=== PATIENT | female | born 1990 | race Caucasian/White ===

== ENCOUNTER 2017-06-29 04:27 | Inpatient (IN) | payer BC ==
[2017-06-29] MEDS ORDERED: Sodium Chloride 0.9% 10 ML Syringe FLUSH PRN (08:03)
--- NOTE | 2017-06-29 08:14 | PCM.LDHP ---
L&D History of Present Illness - General Date of Service: 06/29/17 Admit Problem/Dx: Patient Status Order with Admit Dx/Problem 06/29/17 08:04 Patient Status [ADT] Routine Admission Diagnosis/Problem Admission Diagnosis/Problem Labor established Source of Information: Patient History Limitations: Reports: No Limitations - History of Present Illness Location, : Reports: Abdomen, Lower back Quality: Reports: Ache Severity: Mild Improves with: Reports: None Worsens with: Reports: None Associated Symptoms: Denies: vaginal bleeding, vaginal clots, vaginal discharge , vaginal fluid - Related Data Allergies/Adverse Reactions: Allergies Allergy/AdvReac Type Severity Reaction Status Date / Time No Known Allergies Allergy Verified 06/29/17 07:34 Home Medications: Home Meds PNV95/Ferrous Fumarate/FA [ Tablet] 1 tab PO DAILY 06/29/17 [History] Past Medical History - Past Health History Medical/Surgical History: Denies Medical/Surgical History 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: 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: 4 Endocrine/Metabolic History: Reports: Obesity/BMI 30+ - Past Surgical History HEENT Surgical History: Reports: Tonsillectomy GI Surgical History: Reports: Cholecystectomy, Hernia, Abdominal Social & Family History - Family History Family Medical History: Noncontributory - Tobacco Use Smoking Status *Q: Never Smoker - Recreational Drug Use Recreational Drug Use: No H&P Review of Systems - Review of Systems: Review Of Systems: See Below General: Reports: No Symptoms HEENT: Reports: No Symptoms Pulmonary: Reports: No Symptoms Cardiovascular: Reports: No Symptoms Gastrointestinal: Reports: Abdominal Pain Genitourinary: Reports: No Symptoms Musculoskeletal: Reports: No Symptoms Skin: Reports: No Symptoms Psychiatric: Reports: No Symptoms Neurological: Reports: No Symptoms Hematologic/Lymphatic: Reports: No Symptoms Immunologic: Reports: No Symptoms L&D Exam - Exam Exam: See Below - Vital Signs Vital Signs: Last Vital Signs Temp 36.8 C 06/29/17 07:15 Pulse 87 06/29/17 07:15 Resp 14 06/29/17 07:15 BP 125/81 06/29/17 07:15 Pulse Ox 96 06/29/17 07:15 Weight: 99.337 kg - OB Specific Contraction Frequency (min): q5-8min Contraction Intensity: Mild to Moderate Movement: Active Heart Tones: Present Heart Tones per Min: 130 Heart Rate (FHR) Variability: Moderate (6-25 bmp) Presentation: Vertex Estimated Weight: 3500 grams - Hernandez Score Hernandez Score Cervix Position: Midposition Hernandez Score Consistency: Soft Hernandez Score Effacement: >80% Hernandez Score Dilation: > 5 cm Hernandez Score Infant's Station: -2 Hernandez Score Total: 10 - Exam General: Alert, Oriented Cardiovascular: Regular Rate, Regular Rhythm GI/Abdominal Exam: Normal Bowel Sounds, Soft, Non-Tender Genitourinary: Normal external exam Skin: Warm, Dry, Intact Psychiatric: Alert, Normal Affect, Normal Mood - Problem List (1) Normal labor SNOMED Code(s): 57219929 ICD Code: O80 - ENCOUNTER FOR FULL-TERM UNCOMPLICATED DELIVERY; Z37.9 - OUTCOME OF DELIVERY, UNSPECIFIED Status: Acute Current Visit: No Problem List Initiated/Reviewed/Updated: Yes Orders Last 24hrs: Active Orders 24 hr Category Date Time Status Patient Status [ADT] Routine ADT 06/29/17 08:04 Ordered Activity as Tolerated [RC] PFP Care 06/29/17 08:04 Ordered Communication Order [RC] ASDIRECTED Care 06/29/17 08:04 Ordered Heart Tones [RC] ASDIRECTED Care 06/29/17 08:04 Ordered Notify Provider [RC] PFP Care 06/29/17 08:04 Ordered Notify Provider [RC] PRN Care 06/29/17 08:04 Ordered Peripheral IV Care [RC] . DIRECTED Care 06/29/17 08:04 Ordered Vital Signs [RC] PER UNIT ROUTINE Care 06/29/17 08:04 Ordered Nothing Per Oral Diet [DIET] Diet 06/29/17 Breakfast Ordered CBC W/O DIFF,HEMOGRAM [HEME] Stat Lab 06/29/17 08:03 Ordered Lactated Ringers [Ringers, Lactated] 1,000 ml Med 06/29/17 08:15 Ordered IV ASDIRECTED Lidocaine 1% [Xylocaine 1%] Med 06/29/17 08:03 Once 50 ml INJECT ONETIME ONE Oxytocin/Lactated Ringers [Pitocin in LR 10 Units/1,000 Med 06/29/17 08:15 Ordered ML] 10 unit in 1,000 ml IV .CONTINUOUS Sodium Chloride 0.9% [Saline Flush] Med 06/29/17 08:03 Ordered 10 ml FLUSH ASDIRECTED PRN Electronic Heart Tones Ext w TOCO [WOMSER] Ot 06/29/17 08:04 Ordered Routine Electronic Heart Tones Internal [WOMSER] Per Unit Ot 06/29/17 08:04 Ordered Routine Peripheral IV Insertion Adult [OM.PC] Routine Ot 06/29/17 08:04 Ordered Resuscitation Status Routine Resus Stat 06/29/17 08:03 Ordered Assessment/Plan Comment:: 27 yo at 39 weeks 2 days gestation with contractions at home. Plan: Pt at term in labor. 6 cm dilated on exam. AROM performed with clear fluid. GBS negative anticipate vaginal delivery. Pt desires no epidural at this time.
[2017-06-29] MEDS ORDERED: Oxytocin/Lactated Ringers 10 UNIT/1,000 ML BAG IV SCH (08:15)
[2017-06-29] MEDS ORDERED: Lactated Ringers 1,000 ML IV SCH (08:15)
[2017-06-29] MEDS ORDERED: Nalbuphine 20 MG/1 ML Amp ONE (09:09)
[2017-06-29] MEDS ORDERED: Nalbuphine 20 MG/1 ML Amp IVPUSH ONE (09:19)
[2017-06-29] MEDS ORDERED: Lidocaine 1% 50 ML MDV INJECT ONE (10:00)
[2017-06-29] MEDS ORDERED: Lanolin 100% Cream 7 GM Tube TOP PRN (10:31)
[2017-06-29] MEDS ORDERED: Docusate Sodium 100 MG Cap PO PRN (10:31)
[2017-06-29] MEDS ORDERED: Benzocaine/Menthol 20%-0.5% Spray 56 GM Canister TOP PRN (10:31)
[2017-06-29] MEDS ORDERED: Witch Hazel Medicated Pads 100/Jar TOP PRN (10:31)
[2017-06-29] MEDS ORDERED: Acetaminophen 325 MG Tab PO PRN (10:31)
--- NOTE | 2017-06-29 10:38 | PCM.DEL ---
L & D Note - General Info Date of Service: 06/29/17 - Delivery Note Labor: Spontaneous Delivery Outcome: Livebirth Delivery Method: Spontaneous Vaginal Delivery-Single Presentation: Left Occiput Anterior (PILLO) Nuchal Cord: None Prep: Povidone-Iodine (Betadine Anesthesia Type: None Amniotic Fluid Description: Clear Laceration: 2nd Degree Suture type: Vicryl Suture size: 3-0 Placenta: Intact, Spontaneous Cord: 3 Vessels Estimated Blood Loss: 200 Resuscitation Needed: No Score 1 min: 9 Score 5 min: 9 Delivery Comments (Free Text/Narrative):: AGA female Time of 0954 Time of placenta 1010 9 and 9 - Patient Data Vitals - Most Recent: Last Vital Signs Temp 36.8 C 06/29/17 07:15 Pulse 87 06/29/17 07:15 Resp 14 06/29/17 07:15 BP 125/81 06/29/17 07:15 Pulse Ox 96 06/29/17 07:15 Weight - Most Recent: 99.337 kg Lab Results Last 24 Hours: Laboratory Results - last 24 hr 06/29/17 Range/Units 08:20 WBC 9.91 (3.98-10.04) K/mm3 RBC 3.80 L (3.98-5.22) M/mm3 Hgb 11.5 (11.2-15.7) gm/L Hct 35.7 (34.1-44.9) % MCV 93.9 (79.4-94.8) fl MCH 30.3 (25.6-32.2) pg MCHC 32.2 (32.2-35.5) g/dl RDW Std Deviation 47.8 H (36.4-46.3) fL Plt Count 178 L (182-369) K/mm3 MPV 12.8 H (9.4-12.3) fl Med Orders - Current: Current Medications Acetaminophen (Tylenol) 650 mg PO Q4H PRN PRN Reason: mild pain or fever Benzocaine/Menthol (Dermoplast Pain Relief [place]) 0 gm TOP ASDIRECTED PRN PRN Reason: Perineal Comfort Measure Docusate Sodium (Colace) 100 mg PO BID PRN PRN Reason: Constipation Emollient Ointment (Lansinoh Hpa) 0 gm TOP ASDIRECTED PRN PRN Reason: Sore Nipples Lactated Ringer's (Ringers, Lactated) 1,000 mls @ 100 mls/hr IV ASDIRECTED YASMINE Last Admin: 06/29/17 09:58 Dose: 100 mls/hr Oxytocin/Lactated Ringer's (Pitocin In Lr 10 Units/1,000 Ml) 10 unit in 1,000 mls @ 500 mls/hr IV .CONTINUOUS YASMINE Ibuprofen (Motrin) 600 mg PO Q4H PRN PRN Reason: Mild pain or fever Sodium Chloride (Saline Flush) 10 ml FLUSH ASDIRECTED PRN PRN Reason: Keep Vein Open Witgina Macielel (Tucks) 1 pad TOP ASDIRECTED PRN PRN Reason: Hemorrhoid pain Discontinued Medications Lidocaine HCl (Xylocaine 1%) 50 ml INJECT ONETIME ONE Stop: 06/29/17 10:01 Last Admin: 06/29/17 10:15 Dose: 50 ml Nalbuphine HCl (Nubain) Confirm Administered Dose 20 mg .ROUTE .STK-MED ONE Stop: 06/29/17 09:10 Last Admin: 06/29/17 09:25 Dose: Not Given Nalbuphine HCl (Nubain) 10 mg IVPUSH ONETIME ONE Stop: 06/29/17 09:20 Last Admin: 06/29/17 09:10 Dose: 5 mg - Problem List & Annotations (1) Normal labor SNOMED Code(s): 60096387 Code(s): O80 - ENCOUNTER FOR FULL-TERM UNCOMPLICATED DELIVERY; Z37.9 - OUTCOME OF DELIVERY, UNSPECIFIED Status: Acute Current Visit: No - Problem List Review Problem List Initiated/Reviewed/Updated: Yes - My Orders Last 24 Hours: My Active Orders 06/29/17 08:03 Sodium Chloride 0.9% [Saline Flush] 10 ml FLUSH ASDIRECTED PRN Resuscitation Status Routine 06/29/17 08:04 Patient Status [ADT] Routine Activity as Tolerated [RC] PFP Communication Order [RC] ASDIRECTED Heart Tones [RC] ASDIRECTED Notify Provider [RC] PFP Notify Provider [RC] PRN Peripheral IV Care [RC] . DIRECTED Vital Signs [RC] PER UNIT ROUTINE Electronic Heart Tones Ext w TOCO [WOMSER] Routine Electronic Heart Tones Internal [WOMSER] Per Unit Routine Peripheral IV Insertion Adult [OM.PC] Routine 06/29/17 08:15 Lactated Ringers [Ringers, Lactated] 1,000 ml IV ASDIRECTED Oxytocin/Lactated Ringers [Pitocin in LR 10 Units/1,000 ML] 10 unit in 1,000 ml IV .CONTINUOUS 06/29/17 10:29 Patient Status Manage Transfer [TRANSFER] Routine 06/29/17 10:31 Patient Status [ADT] Routine Activity as Tolerated [RC] PER UNIT ROUTINE Vital Signs [RC] ASDIRECTED Acetaminophen [Tylenol] 650 mg PO Q4H PRN Benzocaine/Menthol [Dermoplast Pain Relief [place]] See Dose Instructions TOP ASDIRECTED PRN Docusate Sodium [Colace] 100 mg PO BID PRN Ibuprofen [Motrin] 600 mg PO Q4H PRN Lanolin [Lansinoh HPA] See Dose Instructions TOP ASDIRECTED PRN Witch Becky [Tucks] 1 pad TOP ASDIRECTED PRN Assess Lochia [WOMSER] Per Unit Routine Assess Uterine Involution [WOMSER] Per Unit Routine Breast Pump [WOMSER] Per Unit Routine Medication Administration Instruction [OM.PC] Routine Perineal Care [OM.PC] Per Unit Routine Sitz Bath [OM.PC] Per Unit Routine 06/29/17 10:45 Heat Therapy [OM.PC] PRN 06/29/17 Breakfast Nothing Per Oral Diet [DIET] 06/29/17 Lunch Regular Diet [DIET] 06/30/17 05:00 CBC W/O DIFF,HEMOGRAM [HEME] Routine 06/30/17 10:45 Heat Therapy [OM.PC] PRN - Plan Plan:: 27 yo at 39 weeks 2 days gestation with contractions at home. Plan: Pt at term in labor. 6 cm dilated on exam. AROM performed with clear fluid. GBS negative anticipate vaginal delivery. Pt desires no epidural at this time.
[2017-06-29] MEDS: Ibuprofen 600 MG Tab PO PRN ×2 (11:41→20:55)
[2017-06-30] MEDS: Ibuprofen 600 MG Tab PO PRN (06:56)
--- NOTE | 2017-06-30 07:26 | PCM.DCSUM1 ---
Discharge Summary - Hospital Course Free Text/Narrative:: 27 you at day 1 s/p normal vaginal delivery pain controlled lochia normal bottle feeding Assessment PPD #1 without complication anemia secondary to blood loss Plan DC to home today, follow up in 6-8 weeks for visit continue with iron daily - Discharge Data Discharge Date: 06/30/17 Discharge Disposition: Home, Self-Care 01 Condition: Good - Discharge Diagnosis/Problem(s) (1) Normal labor SNOMED Code(s): 40195262 ICD Code: O80 - ENCOUNTER FOR FULL-TERM UNCOMPLICATED DELIVERY; Z37.9 - OUTCOME OF DELIVERY, UNSPECIFIED Status: Acute Current Visit: No - Patient Instructions Diet: Usual Diet as Tolerated Driving: May Drive Today Showering/Bathing: May Shower Notify Provider of: Fever, Increased Pain, Swelling and Redness, Drainage, Nausea and/or Vomiting Other/Special Instructions: Pelvic rest-no sexual intercourse for 6 weeks - Discharge Plan Home Medications: Home Meds PNV95/Ferrous Fumarate/FA [ Tablet] 1 tab PO DAILY 06/29/17 [History] Referrals: Betty Lees MD [Primary Care Provider] - (6-8 weeks ) - Discharge Summary/Plan Comment DC Time >30 min.: No - General Info Date of Service: 06/30/17 Functional Status: Reports: Pain Controlled, Tolerating Diet, Ambulating - Patient Data Vitals - Most Recent: Last Vital Signs Temp 36.7 C 06/30/17 03:23 Pulse 69 06/30/17 03:23 Resp 16 06/30/17 03:23 BP 109/62 06/30/17 03:23 Pulse Ox 97 06/30/17 03:23 Weight - Most Recent: 99.337 kg I&O - Last 24 hours: Intake & Output 06/29/17 06/30/17 06/30/17 22:59 06:59 14:59 Intake Total 0 Balance 0 Lab Results - Last 24 hrs: Laboratory Results - last 24 hr 06/29/17 06/30/17 Range/Units 08:20 06:28 WBC 9.91 10.52 H (3.98-10.04) K/mm3 RBC 3.80 L 3.39 L (3.98-5.22) M/mm3 Hgb 11.5 10.2 L (11.2-15.7) gm/L Hct 35.7 32.3 L (34.1-44.9) % MCV 93.9 95.3 H (79.4-94.8) fl MCH 30.3 30.1 (25.6-32.2) pg MCHC 32.2 31.6 L (32.2-35.5) g/dl RDW Std Deviation 47.8 H 48.1 H (36.4-46.3) fL Plt Count 178 L 169 L (182-369) K/mm3 MPV 12.8 H 12.7 H (9.4-12.3) fl Med Orders - Current: Current Medications Acetaminophen (Tylenol) 650 mg PO Q4H PRN PRN Reason: mild pain or fever Last Admin: 06/29/17 23:26 Dose: 650 mg Benzocaine/Menthol (Dermoplast Pain Relief [place]) 0 gm TOP ASDIRECTED PRN PRN Reason: Perineal Comfort Measure Last Admin: 06/29/17 11:41 Dose: 56 gm Docusate Sodium (Colace) 100 mg PO BID PRN PRN Reason: Constipation Emollient Ointment (Lansinoh Hpa) 0 gm TOP ASDIRECTED PRN PRN Reason: Sore Nipples Ibuprofen (Motrin) 600 mg PO Q4H PRN PRN Reason: Mild pain or fever Last Admin: 06/30/17 06:56 Dose: 600 mg Witch Becky (Tucks) 1 pad TOP ASDIRECTED PRN PRN Reason: Hemorrhoid pain Last Admin: 06/29/17 11:41 Dose: 1 can Discontinued Medications Lactated Ringer's (Ringers, Lactated) 1,000 mls @ 100 mls/hr IV ASDIRECTED YASMINE Last Admin: 06/29/17 09:58 Dose: 100 mls/hr Oxytocin/Lactated Ringer's (Pitocin In Lr 10 Units/1,000 Ml) 10 unit in 1,000 mls @ 500 mls/hr IV .CONTINUOUS YASMINE Lidocaine HCl (Xylocaine 1%) 50 ml INJECT ONETIME ONE Stop: 06/29/17 10:01 Last Admin: 06/29/17 10:15 Dose: 50 ml Nalbuphine HCl (Nubain) Confirm Administered Dose 20 mg .ROUTE .STK-MED ONE Stop: 06/29/17 09:10 Last Admin: 06/29/17 09:25 Dose: Not Given Nalbuphine HCl (Nubain) 10 mg IVPUSH ONETIME ONE Stop: 06/29/17 09:20 Last Admin: 06/29/17 09:10 Dose: 5 mg Sodium Chloride (Saline Flush) 10 ml FLUSH ASDIRECTED PRN PRN Reason: Keep Vein Open *Q Meaningful Use (DIS) - VTE *Q VTE Criteria *Q: - Stroke *Q Stroke Criteria *Q: - AMI *Q AMI Criteria *Q: - General Info Date of Service: 06/30/17 - Patient Data Vital Signs - Most Recent: Last Vital Signs Temp 36.7 C 06/30/17 03:23 Pulse 69 06/30/17 03:23 Resp 16 06/30/17 03:23 BP 109/62 06/30/17 03:23 Pulse Ox 97 06/30/17 03:23 Weight - Most Recent: 99.337 kg I&O - Last 24 Hours: Intake & Output 06/29/17 06/30/17 06/30/17 22:59 06:59 14:59 Intake Total 0 Balance 0 Lab Results - Last 24 Hours: Laboratory Results - last 24 hr 06/29/17 06/30/17 Range/Units 08:20 06:28 WBC 9.91 10.52 H (3.98-10.04) K/mm3 RBC 3.80 L 3.39 L (3.98-5.22) M/mm3 Hgb 11.5 10.2 L (11.2-15.7) gm/L Hct 35.7 32.3 L (34.1-44.9) % MCV 93.9 95.3 H (79.4-94.8) fl MCH 30.3 30.1 (25.6-32.2) pg MCHC 32.2 31.6 L (32.2-35.5) g/dl RDW Std Deviation 47.8 H 48.1 H (36.4-46.3) fL Plt Count 178 L 169 L (182-369) K/mm3 MPV 12.8 H 12.7 H (9.4-12.3) fl Med Orders - Current: Current Medications Acetaminophen (Tylenol) 650 mg PO Q4H PRN PRN Reason: mild pain or fever Last Admin: 06/29/17 23:26 Dose: 650 mg Benzocaine/Menthol (Dermoplast Pain Relief [place]) 0 gm TOP ASDIRECTED PRN PRN Reason: Perineal Comfort Measure Last Admin: 06/29/17 11:41 Dose: 56 gm Docusate Sodium (Colace) 100 mg PO BID PRN PRN Reason: Constipation Emollient Ointment (Lansinoh Hpa) 0 gm TOP ASDIRECTED PRN PRN Reason: Sore Nipples Ibuprofen (Motrin) 600 mg PO Q4H PRN PRN Reason: Mild pain or fever Last Admin: 06/30/17 06:56 Dose: 600 mg Witch Becky (Tucks) 1 pad TOP ASDIRECTED PRN PRN Reason: Hemorrhoid pain Last Admin: 06/29/17 11:41 Dose: 1 can Discontinued Medications Lactated Ringer's (Ringers, Lactated) 1,000 mls @ 100 mls/hr IV ASDIRECTED YASMINE Last Admin: 06/29/17 09:58 Dose: 100 mls/hr Oxytocin/Lactated Ringer's (Pitocin In Lr 10 Units/1,000 Ml) 10 unit in 1,000 mls @ 500 mls/hr IV .CONTINUOUS [facility] Lidocaine HCl (Xylocaine 1%) 50 ml INJECT ONETIME ONE Stop: 06/29/17 10:01 Last Admin: 06/29/17 10:15 Dose: 50 ml Nalbuphine HCl (Nubain) Confirm Administered Dose 20 mg .ROUTE .STK-MED ONE Stop: 06/29/17 09:10 Last Admin: 06/29/17 09:25 Dose: Not Given Nalbuphine HCl (Nubain) 10 mg IVPUSH ONETIME ONE Stop: 06/29/17 09:20 Last Admin: 06/29/17 09:10 Dose: 5 mg Sodium Chloride (Saline Flush) 10 ml FLUSH ASDIRECTED PRN PRN Reason: Keep Vein Open - Infant Interaction Infant Disposition, : in Room with Family Interaction: Holding Infant Feeding: Attempted ; Nursed Fair/Poor, Bottle Fed Support Person: - Recovery Exam Fundal Tone: Firm Fundal Level: At Umbilicus Fundal Placement: Midline Lochia Amount: Small Lochia Color: Rubra/Red Perineum Description: Other (see below) Other Perinuem Description: 2nd degree Episiotomy/Laceration: Approximated Bladder Status: Voiding Urinary Elimination: Voided - Exam General: Alert, Oriented HEENT: Pupils Equal GI/Abdominal Exam: Normal Bowel Sounds, Soft Skin: Warm, Dry, Intact
[2017-06-30 12:22] VITALS: BP 124/73
== END 2017-06-30 13:25 | disposition home or self-care (01) | DRG 560 ==
LOC: JD.OBCHECK 04:27 → JD.OB 04:29 → JD.OBCHECK 08:03 → JD.OB 08:04 → OBSVTOIN 09:54 → JD.OB 09:54
PROVIDERS: ADMIT Family Medicine; ATTEND Family Medicine
PROC: 10E0XZZ Delivery of Products of Conception, External Approach (ICD-10-PCS; principal; 2017-06-29)
PROC: 10907ZC Drainage of Amniotic Fluid, Therapeutic from Products of Conception, Via Natural or Artificial Opening (ICD-10-PCS; 2017-06-29)
PROC: 0KQM0ZZ Repair Perineum Muscle, Open Approach (ICD-10-PCS; 2017-06-29)
DX: O70.1 Second degree perineal laceration during delivery (principal); Z3A.39 39 weeks gestation of pregnancy; Z37.0 Single live birth
CPT/HCPCS: 36415; 59409; 85027; A9270-GY; J2300; J7120

== ENCOUNTER 2020-12-16 23:13 | Emergency (ER) | payer BC ==
--- NOTE | 2020-12-16 23:26 | EDM.PDOC ---
ED HPI GENERAL MEDICAL PROBLEM - General Chief Complaint: Lower Extremity Injury/Pain Stated Complaint: ANKLE INJURY Time Seen by Provider: 12/16/20 23:21 Source of Information: Reports: Patient History Limitations: Reports: No Limitations - History of Present Illness INITIAL COMMENTS - FREE TEXT/NARRATIVE: The patient presents with right ankle pain. She rolled her ankle on a roll of carpet. She denies any other injury. She has pain and swelling to her right lateral ankle. Onset: Sudden Duration: Minutes: Location: Reports: Lower Extremity, Right (lateral ankle) Quality: Reports: Sharp Severity: Moderate Improves with: Reports: None Worsens with: Reports: None Context: Reports: Other (walking) Associated Symptoms: Reports: No Other Symptoms Right Ankle Pain Score (Numeric/FACES): 6 - Related Data Allergies Allergy/AdvReac Type Severity Reaction Status Date / Time No Known Allergies Allergy Verified 12/16/20 23:19 Home Meds: Home Meds Pnv No.95/Ferrous Fum/Folic AC [ Tablet] 1 tab PO DAILY 06/29/17 [History] Docusate Sodium [Colace] 100 mg PO BID PRN cap 09/27/18 [Rx] Ibuprofen [Motrin] 600 mg PO Q6H PRN tablet 09/27/18 [Rx] Past Medical History - Past Health History Medical/Surgical History: Denies Medical/Surgical History 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: Endocrine/Metabolic History: Reports: Obesity/BMI 30+ - Past Surgical History HEENT Surgical History: Reports: Tonsillectomy GI Surgical History: Reports: Cholecystectomy, Hernia, Abdominal Social & Family History - Family History Family Medical History: No Pertinent Family History - Caffeine Use Caffeine Use: Reports: Soda Review of Systems - Review of Systems Review Of Systems: See Below Constitutional: Reports: No Symptoms Eyes: Reports: No Symptoms Ears: Reports: No Symptoms Nose: Reports: No Symptoms Mouth/Throat: Reports: No Symptoms Respiratory: Reports: No Symptoms Cardiovascular: Reports: No Symptoms GI/Abdominal: Reports: No Symptoms Musculoskeletal: Reports: Other (right ankle pain and swelling) ED EXAM, GENERAL - Physical Exam Exam: See Below Exam Limited By: No Limitations General Appearance: Alert, No Apparent Distress Ears: Normal External Exam Nose: Normal Inspection Head: Atraumatic, Normocephalic Neck: Normal Inspection Respiratory/Chest: No Respiratory Distress Extremities: Other (Pain upon palpation with edema to the right lateral ankle with good sensation and pulses.) Course - Vital Signs Last Recorded V/S: Last Vital Signs Temp 97.5 F 12/16/20 23:19 Pulse 98 12/16/20 23:19 Resp 17 12/16/20 23:19 BP Pulse Ox 99 12/16/20 23:19 - Orders/Labs/Meds Orders: Active Orders 24 hr Category Date Time Status Ankle Min 3V Rt [CR] Stat Exams 12/16/20 23:22 Ordered Durable Medical Equipment for Discharge [DME for Oth 12/16/20 23:44 Ordered Discharge] [COMM] Stat Durable Medical Equipment for Discharge [DME for Oth 12/16/20 23:45 Ordered Discharge] [COMM] Stat - Re-Assessments/Exams Free Text/Narrative Re-Assessment/Exam: 12/16/20 23:25 I have ordered an x-ray of her ankle. 12/16/20 23:45 Her x-ray shows nothing acute. I will get her a stirrup splint and crutches. Departure - Departure Time of Disposition: 23:50 Disposition: Home, Self-Care 01 Condition: Good Clinical Impression: Right ankle sprain Qualifiers: Encounter type: initial encounter Involved ligament of ankle: unspecified ligament Qualified Code(s): S93.401A - Sprain of unspecified ligament of right ankle, initial encounter - Discharge Information Referrals: Betty Lees MD [Primary Care Provider] - 1 Week Forms: ED Department Discharge Additional Instructions: Wear the splint for a couple weeks. Use the crutches as needed for a few days. Gently put pressure on your ankle as tolerated over the next couple of days. Ice your ankle for 15 minutes 3 to 5 times per day for 2 days. Try to elevate your ankle above your heart for the next couple of days to reduce swelling. Take tylenol or motrin for pain. Follow up with your doctor if you are not better within a week. Sepsis Event Note (ED) - Evaluation Sepsis Screening Result: No Definite Risk - Focused Exam Vital Signs: Vital Signs Temp Pulse Resp Pulse Ox 12/16/20 23:19 97.5 F 98 17 99 - My Orders Last 24 Hours: My Active Orders 12/16/20 23:22 Ankle Min 3V Rt [CR] Stat 12/16/20 23:44 Durable Medical Equipment for Discharge [DME for Discharge] [COMM] Stat 12/16/20 23:45 Durable Medical Equipment for Discharge [DME for Discharge] [COMM] Stat - Assessment/Plan Last 24 Hours: My Active Orders 12/16/20 23:22 Ankle Min 3V Rt [CR] Stat 12/16/20 23:44 Durable Medical Equipment for Discharge [DME for Discharge] [COMM] Stat 12/16/20 23:45 Durable Medical Equipment for Discharge [DME for Discharge] [COMM] Stat
[2020-12-16 23:48] VITALS: PULSE 98
--- NOTE | 2020-12-17 07:27 | CR ---
Right ankle: 4 views of the right ankle were obtained. Comparison: No previous ankle study. Soft tissue swelling is identified. Ankle mortise is symmetric. No acute fracture, dislocation or other bony abnormality is appreciated. Impression: 1. Soft tissue swelling. 2. No discrete acute osseous finding is appreciated. Diagnostic code #2
== END 2020-12-17 00:05 | disposition home or self-care (01) ==
LOC: JD.ED 23:13
DX: S93.401A Sprain of unspecified ligament of right ankle, initial encounter (principal); E66.9 Obesity, unspecified; Z68.38 Body mass index [BMI] 38.0-38.9, adult; X50.1XXA Overexertion from prolonged static or awkward postures, initial encounter
CPT/HCPCS: 73610-26-RT; 73610-RT; 99282; 99283

== ENCOUNTER 2023-04-07 23:06 | Emergency (ER) | payer BC ==
[2023-04-08 02:01] VITALS: BP 137/90; PULSE 78
== END 2023-04-08 02:00 | disposition home or self-care (01) ==
LOC: JD.ED 23:06
DX: S93.401A Sprain of unspecified ligament of right ankle, initial encounter (principal); E66.9 Obesity, unspecified; Z68.41 Body mass index [BMI] 40.0-44.9, adult; X50.1XXA Overexertion from prolonged static or awkward postures, initial encounter
CPT/HCPCS: 73610-26-RT; 73610-RT; 99283

== ENCOUNTER 2024-01-25 00:55 | Emergency (ER) | payer BC ==
[2024-01-25] MEDS: Aspirin 81 MG Tab.Chew PO ONE (01:27)
[2024-01-25 01:49] LABS: BASOPHILS PERCENT AUTO 0.4 % (0.0-1.0); EOSINOPHILS ABSOLUTE AUTO 0.1 K/mm3 (0.0-0.4); EOSINOPHILS PERCENT AUTO 1.2 % (0.0-6.0); HEMATOCRIT 34.8 % (37.0-47.0); HEMOGLOBIN 11.5 gm/dl (12.0-16.0); IMMATURE GRAN ABSOLUTE AUTO 0.03 K/mm3 (0.00-0.05); IMMATURE GRAN PERCENT AUTO 0.4 % (0.0-0.4); LYMPHOCYTES PERCENT AUTO 37.4 % (24.0-44.0); MEAN CORPUSCULAR VOLUME 87.9 fl (83.0-99.0); MEAN PLATELET VOLUME 10.5 fl (9.4-12.3); MONOCYTES ABSOLUTE AUTO 0.6 K/mm3 (0.0-0.8); NEUTROPHILS ABSOLUTE AUTO 4.2 K/mm3 (1.8-7.7); NEUTROPHILS PERCENT AUTO 52.6 % (41.0-71.0); PLATELET COUNT,PLT 290 K/mm3 (150-400); RED BLOOD CELL COUNT 3.96 M/mm3 (4.10-5.30); WHITE BLOOD CELL COUNT,WBC 8.03 K/mm3 (3.9-11.3)
[2024-01-25 02:38] LABS: A/G RATIO 1.2 (1-2); ALANINE AMINOTRANSFERASE,ALT 49 U/L (14-59); ALBUMIN 3.8 g/dl (3.4-5.0); ALKALINE PHOSPHATASE 73 U/L (46-116); ANION GAP 15.8 (5-15); ASPARTATE AMNIOTRANSFERASE,AST 27 U/L (15-37); BILIRUBIN TOTAL 0.2 mg/dL (0.2-1.0); BLOOD UREA NITROGEN,BUN 15 mg/dL (7-18); BUN/CREATININE RATIO 18.8 (14-18); CALCIUM 8.7 mg/dL (8.5-10.1); CHLORIDE,CL 103 mEq/L (98-107); CREATININE 0.8 mg/dL (0.55-1.02); ESTIMATED GFR 101 mL/min (>60); GLUCOSE RANDOM 106 mg/dL (70-99); LIPASE 42 U/L (16-77); POTASSIUM,K 3.8 mEq/L (3.5-5.1); PROTEIN TOTAL,TP 7.1 g/dl (6.4-8.2); SODIUM,NA 140 mEq/L (136-145)
[2024-01-25 02:43] LABS: TROPONIN I HIGH SENSITIVITY < 4 pg/mL (<=51)
[2024-01-25 02:47] LABS: CARBON DIOXIDE,CO2 24 mEq/L (21-32)
[2024-01-25 03:07] VITALS: BP 137/77; PULSE 84
== END 2024-01-25 03:07 | disposition home or self-care (01) ==
LOC: JD.ED 00:55
DX: R07.9 Chest pain, unspecified (principal); Z86.16 Personal history of COVID-19; Z90.49 Acquired absence of other specified parts of digestive tract
CPT/HCPCS: 36415; 71045; 80053; 83690; 84484; 85025; 93005; 99285; A9270; 93010; 99284

== ENCOUNTER 2024-04-19 05:14 | Emergency (ER) | payer BC ==
[2024-04-19] MEDS: Sodium Chloride 0.9% 1,000 ML IV ONE (05:59)
[2024-04-19] MEDS: Ondansetron 4 MG/2 ML SDV IVPUSH ONE (06:00)
[2024-04-19] MEDS: Sodium Chloride 0.9% 10 ML Syringe FLUSH PRN (06:00)
[2024-04-19] MEDS: Ketorolac 30 MG/ML SDV IVPUSH ONE (06:00)
[2024-04-19 06:04] LABS: BASOPHILS PERCENT AUTO 0.2 % (0.0-1.0); EOSINOPHILS PERCENT AUTO 0.2 % (0.0-6.0); HEMATOCRIT 34.3 % (37.0-47.0); HEMOGLOBIN 11.3 gm/dl (12.0-16.0); IMMATURE GRAN ABSOLUTE AUTO 0.02 K/mm3 (0.00-0.05); IMMATURE GRAN PERCENT AUTO 0.2 % (0.0-0.4); LYMPHOCYTES ABSOLUTE AUTO 1.4 K/mm3 (1.0-4.8); LYMPHOCYTES PERCENT AUTO 16.8 % (24.0-44.0); MEAN CORPUSCULAR HEMOGLOBIN 29.1 pg (28.0-32.0); MEAN CORPUSCULAR HGB CONC 32.9 g/dl (32.0-36.0); MEAN CORPUSCULAR VOLUME 88.4 fl (83.0-99.0); MEAN PLATELET VOLUME 10.7 fl (9.4-12.3); MONOCYTES ABSOLUTE AUTO 0.5 K/mm3 (0.0-0.8); MONOCYTES PERCENT AUTO 5.8 % (0.0-8.0); NEUTROPHILS ABSOLUTE AUTO 6.6 K/mm3 (1.8-7.7); NEUTROPHILS PERCENT AUTO 76.8 % (41.0-71.0); PLATELET COUNT,PLT 281 K/mm3 (150-400); RED BLOOD CELL COUNT 3.88 M/mm3 (4.10-5.30); WHITE BLOOD CELL COUNT,WBC 8.56 K/mm3 (3.9-11.3)
[2024-04-19 06:29] LABS: ALBUMIN 3.7 g/dl (3.4-5.0); ANION GAP 13.8 (5-15); BILIRUBIN TOTAL 0.3 mg/dL (0.2-1.0); CALCIUM 8.8 mg/dL (8.5-10.1); EST CRCL DRUG DOSING (CG) 66.81 mL/min; MAGNESIUM 1.6 mg/dL (1.8-2.4); POTASSIUM,K 3.8 mEq/L (3.5-5.1); PROTEIN TOTAL,TP 7.3 g/dl (6.4-8.2)
[2024-04-19 06:42] LABS: APPEARANCE,URINE SLT CLOUDY (Clear); BILIRUBIN,URINE NEGATIVE (Negative); COLOR,URINE PINK (Yellow); GLUCOSE,URINE NEGATIVE (Negative); KETONES,URINE NEGATIVE (Negative); LEUKOCYTE ESTERASE,URINE TRACE (Negative); NITRITE,URINE NEGATIVE (Negative); OCCULT BLOOD,URINE 3+ (Negative); PROTEIN,URINE 1+ (Negative); UROBILINOGEN,URINE 0.2 (0.2-1.0)
[2024-04-19 06:51] LABS: RBC,URINE >100 /hpf (0-5)
[2024-04-19 06:52] LABS: BACTERIA,URINE MODERATE /hpf (FEW); EPITHELIAL CELLS,URINE 0-5 /hpf (0-5); MUCUS,URINE FEW /hpf (FEW)
[2024-04-19 08:17] VITALS: BP 110/64; PULSE 76
== END 2024-04-19 08:00 | disposition home or self-care (01) ==
LOC: JD.ED 05:14
DX: K76.0 Fatty (change of) liver, not elsewhere classified (principal); E66.9 Obesity, unspecified; Z68.41 Body mass index [BMI] 40.0-44.9, adult
CPT/HCPCS: 36415; 74176; 80053; 81001; 83735; 84703; 85025; 87086; 96361; 96374; 96375; 99284; J1885; J2405; J3490; J7030